=== PATIENT | female | born 1955 | race Two or more races ===

== ENCOUNTER 2019-02-13 14:04 | Emergency (ER) | payer BC ==
[2019-02-13 17:04] LABS: ABS Eosinophils 0.1 10^3/ul (0-0.6); ABS Lymphocytes 1.3 10^3/ul (1.0-4.8); ABS Monocytes 0.6 10^3/ul (0-0.8); ABS Neutrophils 3.7 10^3/ul (1.5-7.7); Eosinophil % 2.1 %; Hematocrit 44 % (35-47); Hemoglobin 15.1 g/dL (12.0-16.0); Lymphocyte % 22.5 %; Mean Corpuscular HGB Conc 34 g/dL (31-36); Mean Corpuscular Hemoglobin 32 pg (27-31); Mean Corpuscular Volume 94 fL (80-97); Mean Platelet Volume 9.5 fL (7.4-10.4); Nucleated Red Blood Cells % 0.1; Platelet Count 188 10^3/uL (150-450); Red Blood Count 4.73 10^6 /uL (3.70-4.87); Red Cell Distribution Width 14 % (10-15); White Blood Count 5.7 10^3/uL (3.5-10.8)
[2019-02-13 17:29] LABS: ALT 45 U/L (7-52); AST 33 U/L (13-39); Albumin 4.3 g/dL (3.2-5.2); Albumin/Globulin Ratio 1.2 (1-3); Alkaline Phosphatase 70 U/L (34-104); Anion Gap 7 mmol/L (2-11); BUN/Creatinine Ratio 11.2 (8-20); Blood Urea Nitrogen 11 mg/dL (6-24); C Reactive Protein 63.12 mg/L (<8.01); CO2 Carbon Dioxide 28 mmol/L (22-32); Calcium 9.7 mg/dL (8.6-10.3); Chloride 101 mmol/L (101-111); EGFR African American 69.8 (>60); EGFR Non-African American 57.7 (>60); Globulin 3.7 g/dL (2-4); Glucose 113 mg/dL (70-100); Potassium 4.1 mmol/L (3.5-5.0); Sodium 136 mmol/L (135-145)
--- NOTE | 2019-02-13 18:35 | ED ---
GI/ HPI - HPI Summary HPI Summary: This pt is a 63 y/o female [facility] c/o constipation x4 days. Pt reports she has mid abd pain that radiates to her right sided back. Denies nausea, vomiting, vaginal discharge, vaginal bleeding, rash. She notes she recently had a cold and currently has a cough. Pt believes that this morning she had a fever. Hx of cholecystectomy. Pt still has her appendix. - History of Current Complaint Chief Complaint: EDGeneral Time Seen by Provider: 02/13/19 18:24 Stated Complaint: CONSTIPATED/ABD PAIN/POSS PNUEMONIA PER PT Hx Obtained From: Patient Onset/Duration: Started Days Ago, Still Present Timing: Lasting Days Current Severity: Severe Pain Intensity: 9 Location of Pain: Diffuse Associated Signs and Symptoms: Positive: Constipation, Fever, Cough. Negative: Nausea, Vomiting, Diarrhea Additional Signs & Symptoms: Negative: Vaginal Bleeding, Vaginal Discharge Aggravating Factor(s): Nothing Alleviating Factor(s): Nothing - Allergy/Home Medications Allergies/Adverse Reactions: Allergies Allergy/AdvReac Type Severity Reaction Status Date / Time No Known Allergies Allergy Verified 02/13/19 14:11 PMH/Surg Hx/FS Hx/Imm Hx Endocrine/Hematology History: Denies: Hx Diabetes Cardiovascular History: Denies: Hx Hypertension - Surgical History Surgical History: Yes Surgery Procedure, Year, and Place: CHOLECYSTECTOMY Infectious Disease History: No Infectious Disease History: Denies: Traveled Outside the [place] in Last 30 Days - Family History Known Family History: Negative: Cardiac Disease, Hypertension, Diabetes - Social History Alcohol Use: None Substance Use Type: Reports: None Smoking Status (MU): Never Smoked Tobacco Review of Systems Positive: Fever ENT: Other - POSITIVE: cold symptoms Positive: Cough Gastrointestinal: Other - POSITIVE: constipation Positive: Abdominal Pain. Negative: Vomiting, Diarrhea, Nausea Negative: discharge, other - NEGATIVE: vaginal bleeding Negative: Rash All Other Systems Reviewed And Are Negative: Yes Physical Exam - Summary Physical Exam Summary: Appearance: Well appearing, no pain distress Skin: warm, dry, reflects adequate perfusion Head/face: normal Eyes: EOMI, ALMITA ENT: normal Neck: supple, non-tender Respiratory: CTA, breath sounds present Cardiovascular: RRR, pulses symmetrical Abdomen: tenderness in the right and left lower quadrants, soft Musculoskeletal: normal, strength/ROM intact Neuro: normal, sensory motor intact, A&Ox3 Triage Information Reviewed: Yes Vital Signs On Initial Exam: Initial Vitals Temp Pulse Resp BP Pulse Ox 100.2 F 104 18 153/100 94 02/13/19 14:06 02/13/19 14:06 02/13/19 14:06 02/13/19 14:06 02/13/19 14:06 Vital Signs Reviewed: Yes Diagnostics - Vital Signs Vital Signs Temp Pulse Resp BP Pulse Ox 02/13/19 16:10 100.2 F 90 18 146/96 96 02/13/19 14:06 100.2 F 104 18 153/100 94 - Laboratory Lab Results: Lab Results 02/13/19 02/13/19 02/13/19 Range/Units 16:44 16:44 16:44 WBC 5.7 (3.5-10.8) 10^3/uL RBC 4.73 (3.70-4.87) 10^6 /uL Hgb 15.1 (12.0-16.0) g/dL Hct 44 (35-47) % MCV 94 (80-97) fL MCH 32 H (27-31) pg MCHC 34 (31-36) g/dL RDW 14 (10-15) % Plt Count 188 (150-450) 10^3/uL MPV 9.5 (7.4-10.4) fL Neut % (Auto) 64.3 % Lymph % (Auto) 22.5 % Fannin % (Auto) 10.3 % Eos % (Auto) 2.1 % Baso % (Auto) 0.8 % Absolute Neuts (auto) 3.7 (1.5-7.7) 10^3/ul Absolute Lymphs (auto) 1.3 (1.0-4.8) 10^3/ul Absolute Monos (auto) 0.6 (0-0.8) 10^3/ul Absolute Eos (auto) 0.1 (0-0.6) 10^3/ul Absolute Basos (auto) 0.0 (0-0.2) 10^3/ul Absolute Nucleated RBC 0.0 10^3/ul Nucleated RBC % 0.1 Sodium 136 (135-145) mmol/L Potassium 4.1 (3.5-5.0) mmol/L Chloride 101 (101-111) mmol/L Carbon Dioxide 28 (22-32) mmol/L Anion Gap 7 (2-11) mmol/L BUN 11 (6-24) mg/dL Creatinine 0.98 H (0.51-0.95) mg/dL Est GFR ( Amer) 69.8 (>60) Est GFR (Non-Af Amer) 57.7 (>60) BUN/Creatinine Ratio 11.2 (8-20) Glucose 113 H (70-100) mg/dL Lactic Acid 0.7 (0.5-2.0) mmol/L Calcium 9.7 (8.6-10.3) mg/dL Total Bilirubin 0.70 (0.2-1.0) mg/dL AST 33 (13-39) U/L ALT 45 (7-52) U/L Alkaline Phosphatase 70 (34-104) U/L C-Reactive Protein 63.12 H (<8.01) mg/L Total Protein 8.0 (6.4-8.9) g/dL Albumin 4.3 (3.2-5.2) g/dL Globulin 3.7 (2-4) g/dL Albumin/Globulin Ratio 1.2 (1-3) Lipase < 10 L (11.0-82.0) U/L Result Diagrams: 02/13/19 16:44 02/13/19 16:44 Lab Statement: Any lab studies that have been ordered have been reviewed, and results considered in the medical decision making process. - Radiology Abdomen XR Radiology Interpretation Completed By: Radiologist Summary of Radiographic Findings: IMPRESSION: Nonobstructive bowel gas pattern. Large amount of stool throughout the colon. Dr. Knight has reviewed this report. GIGU Course/Dx - Course Assessment/Plan: Pt is a 63 y/o female presenting to [facility] c/o constipation x4 days. Pt reports she has mid abd pain that radiates to her right sided back. Test results unremarkable except CRP of 63.12, Lipase <10. Urinalysis shows trace ketones, 2+ blood, 2+ RBC, squamous epithelial cells present, 1+ bacteria. Abd XR shows nonobstructive bowel gas pattern. Large amount of stool throughout the colon. CT abdomen/pelvis was ordered. Pt will be signed out to Dr. Greenfield pending disposition awaiting CT results. - Diagnoses Provider Diagnoses: Abdominal pain Discharge - Sign-Out/Discharge Documenting (check all that apply): Sign-Out Patient Signing out patient TO: Elle iGn - pending CT A/P Patient Received Moderate/Deep Sedation with Procedure: No - Discharge Plan Condition: Stable Referrals: Glynn Mckee MD [Primary Care Provider] - - Billing Disposition and Condition Condition: STABLE - Attestation Statements Document Initiated by Scribe: Yes Documenting Scribe: Mary Vee Provider For Whom Scribe is Documenting (Include Credential): Vance Knight MD Scribe Attestation: Mary Cyr, scribed for Vance Knight MD on 02/13/19 at 2203. Scribe Documentation Reviewed: Yes Provider Attestation: The documentation as recorded by the Mary florentino accurately reflects the service I personally performed and the decisions made by Vance salazar MD Status of Scribe Document: Viewed
[2019-02-13 18:37] LABS: Urine Appearance Cloudy; Urine Bacteria 1+ (Absent); Urine Bilirubin Negative (Negative); Urine Blood 2+ (Negative); Urine Color Yellow; Urine Glucose Negative (Negative); Urine Ketones Trace (Negative); Urine Nitrite Negative (Negative); Urine Protein Negative (Negative); Urine Red Blood Cell 2+(6-10/hpf) (Absent); Urine Specific Gravity 1.011 (1.010-1.030); Urine Squamous Epithelial Cell Present (Absent); Urine Urobilinogen Negative (Negative); Urine White Blood Cell Trace(0-5/hpf) (Absent)
[2019-02-13] MEDS ORDERED: NS 0.9% 1000 ML** 1,000 ML IV SCH (18:45)
[2019-02-13] MEDS ORDERED: Iodixanol* (CONTRAST) 320 MG/ML 100 ML SDV IV ONE (19:31)
--- NOTE | 2019-02-13 21:59 | ED ---
Progress - Progress Note Progress Note: Pt is a signout from Dr. Knight to Dr. Greenfield at shift change 2200 02/13/[address] A/P. - Results/Orders Results/Orders: Her CT A/P shows the followin. Stable nonobstructive left nephrolithiasis. 2. As previously seen, there is colonic diverticulosis but on the current exam there is mild wall thickening and fat stranding in the hepatic flexure of the colon suspicious for mild acute diverticulitis without visible abscess or signs of gross perforation. 3. Stable cystic lesion in the left adnexa measuring a maximum of 5.7 x 3.0 cm, cannot exclude left ovarian cyst versus left-sided hydrosalpinx. ED physician has reviewed this report. Course/Dx - Course Course Of Treatment: Pt is a signout from Dr. Knight to Dr. Greenfield at shift change 2200 02/13/[address] A/P. Her CT A/P found the followin. Stable nonobstructive left nephrolithiasis. 2. As previously seen, there is colonic diverticulosis but on the current exam there is mild wall thickening and fat stranding in the hepatic flexure of the colon suspicious for mild acute diverticulitis without visible abscess or signs of gross perforation. 3. Stable cystic lesion in the left adnexa measuring a maximum of 5.7 x 3.0 cm, cannot exclude left ovarian cyst versus left-sided hydrosalpinx. She will be discharged home with a Dx of diverticulitis. - Diagnoses Provider Diagnoses: Diverticulitis Discharge - Sign-Out/Discharge Documenting (check all that apply): Patient Departure - discharge, Receiving Sign-Out Receiving patient FROM: Vance Knight Patient Received Moderate/Deep Sedation with Procedure: No - Discharge Plan Condition: Stable Disposition: HOME Prescriptions: Amoxicillin/Clavulanate TAB* [Augmentin TAB 875*] 875 mg PO BID #14 tab Patient Education Materials: Diverticulitis (ED) Referrals: Glynn Mckee MD [Primary Care Provider] - 3 Days Additional Instructions: Please follow up with your primary care provider in 2-3 days and return to the emergency department for any new or worsening symptoms. Take the medications provided with the directions listed. - Attestation Statements Document Initiated by Scribe: Yes Documenting Scribe: Roderick Jonas Provider For Whom Scribe is Documenting (Include Credential): Elle Greenfield MD Scribe Attestation: Roderick Cyr, scribed for Elle Greenfield MD on 02/14/19 at 0000. Status of Scribe Document: Ready
[2019-02-13] MEDS ORDERED: Amoxicillin/Clavulanate TAB* 875 MG PO ONE (23:58)
[2019-02-14 00:25] VITALS: BP 157/88
== END 2019-02-14 00:24 | disposition home or self-care (01) ==
LOC: ED 14:04
DX: K57.92 Diverticulitis of intestine, part unspecified, without perforation or abscess without bleeding (principal); N20.0 Calculus of kidney; Z90.49 Acquired absence of other specified parts of digestive tract
CPT/HCPCS: 36415; 74018; 74177; 80053; 81003; 81015; 83605; 83690; 85025; 86140; 87086; 96360; 96361; 99283; A9270-GY; Q9967